=== PATIENT | female | born 1955 | race Caucasian/White ===

== ENCOUNTER 2020-07-26 17:35 | Emergency (ER) | payer BC ==
[~2020-07-26] VITALS: Ht 165.1 cm; Wt 71.2 kg
--- NOTE | 2020-07-26 18:25 | Diagnostic Imaging Report ---
EXAM: CT Head Without Intravenous Contrast CLINICAL HISTORY: TRAUMA TECHNIQUE: Axial computed tomography images of the head/brain without intravenous contrast. CTDI is 53.4 mGy and DLP is 1018.8 mGy-cm. One or more of the following dose reduction techniques were used: automated exposure control, adjustment of the mA and/or kV according to patient size, use of iterative reconstruction technique. COMPARISON: No previous studies. FINDINGS: Brain: No abnormal extra-axial collection. No hemorrhage. Midline shift: No midline shift or mass-effect. Ventricles: The ventricular system is age appropriate. Bones/joints: Calvarium is grossly unremarkable. No acute fracture. Soft tissues: Unremarkable. Sinuses: Visualized sinuses are unremarkable. Mastoid air cells: Mastoid air cells are well pneumatized. Other findings: Only axial and coronal images were provided. IMPRESSION: 1. No acute intracranial pathology is detected. 2. If there is concern for etiology such as early acute lacunar infarcts, magnetic resonance imaging of the brain with diffusion-weighted sequences should be performed.
--- NOTE | 2020-07-26 18:31 | Diagnostic Imaging Report ---
EXAM: CT Cervical Spine Without Intravenous Contrast CLINICAL HISTORY: TRAUMA TECHNIQUE: Axial computed tomography images of the cervical spine without intravenous contrast. CTDI is 20.2 mGy and DLP is 426.2 mGy-cm. One or more of the following dose reduction techniques were used: automated exposure control, adjustment of the mA and/or kV according to patient size, use of iterative reconstruction technique. COMPARISON: No previous study. FINDINGS: Vertebrae: There is straightening and reversal of the curvature of the cervical spine suggestive of muscle spasm. Cervical and visualized thoracic vertebral bodies are maintained in height. No acute fracture. Discs/spinal canal/neural foramina: Mild to moderate degenerative disc disease, most notably at the C5-6 level. Transaxial images of the cervical spine reveal multilevel posterior facet hypertrophy and disc osteophyte complexes. No spinal canal stenosis. Soft tissues: Paraspinal and regional soft tissues are unremarkable. Lung apices: Minimal scarring at the lung apices. Other findings: Spinous processes are unremarkable per The airways patent. IMPRESSION: 1. Straightening and reversal of the curvature of the cervical spine suggestive of muscle spasm. 2. Degenerative disc disease. 3. No acute injury to the cervical spine is detected.
[2020-07-26 18:33] VITALS: BP 113/70
--- NOTE | 2020-07-26 18:42 | Emergency Room Report ---
History of Present Illness General Chief Complaint: Multiple Trauma/Fall Source: Patient Present Illness HPI 65-year-old female with no signal past medical history was sent here today by primary doctor for head CT status post fall. Patient reports that she was walking her dog and she tripped over her dog and landed on her forehead hitting her forehead to concrete. Denies loss of consciousness, dizziness, blurry vision, nausea or vomiting. Denies any headache at this time. Has not taken medication for symptom relief. Also complains of neck pain and soreness. Has range of motion of neck, Nexus criteria is negative. Denies any tingling or numbness. Speaking full sentences, walking with a steady gait. Denies taking any blood thinners. Denies all other injuries. Allergies: Coded Allergies: No Known Allergies (Unverified , 07/26/20) COVID-19 Screening Contact w/high risk pt: No Experienced COVID-19 symptoms?: No COVID-19 Testing performed RAIL OPERATOR: No Patient History Past Medical History: see triage record Past Surgical History: none Pertinent Family History: none Now: No Immunizations: UTD Reviewed Nursing Documentation: PMH: Agreed; PSxH: Agreed Nursing Documentation-PMH Past Medical History: No Stated History Review of Systems All Other Systems: negative except mentioned in HPI Physical Exam Vital Signs Date Time Temp Pulse Resp B/P (MAP) Pulse Ox O2 Delivery O2 Flow Rate FiO2 07/26/20 18:27 97.0 76 20 113/70 (84) 96 Room Air Sp02 EP Interpretation: reviewed, normal General Appearance: no apparent distress, alert, GCS 15, non-toxic Head: normocephalic, atraumatic Eyes: bilateral eye normal inspection, bilateral eye PERRL ENT: hearing grossly normal, normal pharynx, no angioedema, normal voice Neck: full range of motion, no bony tend, supple/symm/no masses Respiratory: chest non-tender, lungs clear, normal breath sounds, speaking full sentences Cardiovascular #1: regular rate, rhythm, no edema Cardiovascular #2: 2+ carotid (R), 2+ carotid (L) Gastrointestinal: non tender, soft Rectal: deferred Musculoskeletal: back normal, no calf tenderness, pelvis stable, gait/station normal, non-tender Neurologic: alert, motor strength/tone normal, oriented x3, sensory intact, responsive, speech normal Psychiatric: judgement/insight normal, memory normal, mood/affect normal, no suicidal/homicidal ideation Skin: no rash Lymphatic: no adenopathy Medical Decision Making PA Attestation All diagnoses and treatment plans were reviewed and discussed with my supervising physician Dr. Rondon Diagnostic Impression: Primary Impression: Head contusion Additional Impressions: Cervical strain Degenerative disc disease ER Course 65-year-old female with no signal past medical history was sent here today by primary doctor for head CT status post fall. Patient reports that she was walking her dog and she tripped over her dog and landed on her forehead hitting her forehead to concrete. Denies loss of consciousness, dizziness, blurry vision, nausea or vomiting. Denies any headache at this time. Has not taken medication for symptom relief. Also complains of neck pain and soreness. Has range of motion of neck, Nexus criteria is negative. Denies any tingling or numbness. Speaking full sentences, walking with a steady gait. Denies taking any blood thinners. Denies all other injuries. Ddx considered but are not limited to: cerebral hematoma, concussion, skull fracture, head contusion Vital signs: are WNL, pt. is afebrile H&PE are most consistent with: Contusion, cervical strain, degenerative disc disease ORDERS: head CT no contrast, CT C-spine no contrast ED INTERVENTIONS: None required at this time. DISCHARGE: At this time pt. is stable for d/c to home. Will provide printed patient care instructions, and any necessary prescriptions. Care plan and follow up instructions have been discussed with the patient prior to discharge. Patient deferred any Rx for pain medication or muscle relaxant reports that has ibuprofen 800 at home. Advised patient to rest, hydrate, mental rest, follow primary care provider, if worsening symptoms return to the emergency room CT/MRI/US Diagnostic Results CT/MRI/US Diagnostic Results #1: Imaging Test Ordered: Head CT no contrast Impression COMPARISON: No previous studies. FINDINGS: Brain: No abnormal extra-axial collection. No hemorrhage. Midline shift: No midline shift or mass-effect. Ventricles: The ventricular system is age appropriate. Bones/joints: Calvarium is grossly unremarkable. No acute fracture. Soft tissues: Unremarkable. Sinuses: Visualized sinuses are unremarkable. Mastoid air cells: Mastoid air cells are well pneumatized. Other findings: Only axial and coronal images were provided. IMPRESSION: 1. No acute intracranial pathology is detected. 2. If there is concern for etiology such as early acute lacunar infarcts, magnetic resonance imaging of the brain with diffusion-weighted sequences should be performed. CT/MRI/US Diagnostic Results #2: Imaging Test Ordered: CT C-spine no contrast Impression COMPARISON: No previous study. FINDINGS: Vertebrae: There is straightening and reversal of the curvature of the cervical spine suggestive of muscle spasm. Cervical and visualized thoracic vertebral bodies are maintained in height. No acute fracture. Discs/spinal canal/neural foramina: Mild to moderate degenerative disc disease, most notably at the C5-6 level. Transaxial images of the cervical spine reveal multilevel posterior facet hypertrophy and disc osteophyte complexes. No spinal canal stenosis. Soft tissues: Paraspinal and regional soft tissues are unremarkable. Lung apices: Minimal scarring at the lung apices. Other findings: Spinous processes are unremarkable per The airways patent. IMPRESSION: 1. Straightening and reversal of the curvature of the cervical spine suggestive of muscle spasm. 2. Degenerative disc disease. 3. No acute injury to the cervical spine is detected. Last Vital Signs Date Time Temp Pulse Resp B/P (MAP) Pulse Ox O2 Delivery O2 Flow Rate FiO2 07/26/20 18:33 97.0 20 113/70 96 Room Air 07/26/20 18:33 76 Disposition: HOME, SELF-CARE Condition: Stable Patient Instructions: Cervical Strain and Sprain With Rehab-SportsMed, Facial or Scalp Contusion, [id number] Additional Instructions: Take ibuprofen, avoid prolonged increase oral hydration will follow primary care provider, if worsening symptoms return to the emergency room Elzbieta Dowd Jul 26, 2020 18:42
== END 2020-07-26 18:50 | disposition home or self-care (01) ==
LOC: EMR 18:40
DX: S00.93XA Contusion of unspecified part of head, initial encounter (principal); W01.198A Fall on same level from slipping, tripping and stumbling with subsequent striking against other object, initial encounter; Y93.K1 Activity, walking an animal; Y92.9 Unspecified place or not applicable; S16.1XXA Strain of muscle, fascia and tendon at neck level, initial encounter; M50.322 Other cervical disc degeneration at C5-C6 level
CPT/HCPCS: 70450; 72125; 99284